=== PATIENT | female | born 1995 | race African-American/Black ===

== ENCOUNTER 2019-01-26 09:29 | Emergency (ER) | payer MEDICAID ==
[~2019-01-26] VITALS: Ht 170.2 cm; Wt 54.5 kg
[2019-01-26 11:30] VITALS: BP 136/81
== END 2019-01-26 11:37 | disposition home or self-care (01) ==
LOC: EMS 09:30
DX: S22.31XA Fracture of one rib, right side, initial encounter for closed fracture (principal); F12.90 Cannabis use, unspecified, uncomplicated; Y04.2XXA Assault by strike against or bumped into by another person, initial encounter; Y93.89 Activity, other specified; Y92.89 Other specified places as the place of occurrence of the external cause; Y99.8 Other external cause status
CPT/HCPCS: 71101